=== PATIENT | male | born 1995 | race Caucasian/White ===

== ENCOUNTER → 2018-07-07 | Emergency (ER) | payer OTHER ==
[~2018-07-07] VITALS: Ht 182.9 cm; Wt 103.4 kg
== END | disposition home or self-care (01) ==
LOC: ER 21:16
DX: M65.841 Other synovitis and tenosynovitis, right hand (principal)

== ENCOUNTER 2018-08-16 18:44 | Emergency (ER) | payer OTHER ==
[~2018-08-16] VITALS: Ht 182.9 cm; Wt 99.8 kg
== END 2018-08-16 22:37 | disposition home or self-care (01) ==
LOC: ER 18:44
DX: S93.491A Sprain of other ligament of right ankle, initial encounter (principal); X50.0XXA Overexertion from strenuous movement or load, initial encounter; Y93.67 Activity, basketball; Y92.310 Basketball court as the place of occurrence of the external cause; Y99.8 Other external cause status